=== PATIENT | female | born 1940 | race Caucasian/White ===

== ENCOUNTER 2020-01-21 20:17 | Emergency (ER) | payer OTHER ==
[~2020-01-21] VITALS: Ht 165.1 cm; Wt 44.9 kg
[2020-01-21 20:46] LABS: ABSOLUTE NEUTROPHILS 5.5 thou/uL (1.4-8.2); BASOPHILS 1.1 % (0.0-2.0); EOSINOPHILS 2.4 % (0.0-3.0); HEMATOCRIT 41.9 % (37.0-47.0); LYMPHOCYTES 28.7 % (24.0-44.0); MCH 29.9 pg (26.0-34.0); MCHC 33.3 g/dL (28.0-37.0); MCV 89.8 fL (80.0-100.0); MONOCYTES 6.3 % (1.0-8.0); PLATELET COUNT 345 thou/uL (150-400); POLYS 61.5 % (36.0-66.0); RBC 4.67 mil/uL (4.20-5.00); RDW 13.6 % (10.5-14.5)
[2020-01-21 20:51] VITALS: BP 199/105
[2020-01-21 21:01] LABS: ANION GAP 9 mmol/L (7-16); BUN 13 mg/dL (7-18); CALCIUM 9.4 mg/dL (8.5-10.1); CHLORIDE 101 mmol/L (98-107); CO2 29 mmol/L (21-32); CREATININE 0.9 mg/dL (0.6-1.0); GLUCOSE 157 mg/dL (74-106); POTASSIUM 3.9 mmol/L (3.5-5.1); SODIUM 139 mmol/L (136-145)
[2020-01-21 21:09] LABS: TROPONIN-I <0.06 ng/mL (<0.06)
--- NOTE | 2020-01-22 13:23 | EKG ---
[facility] [place] [address] ELECTROCARDIOGRAM REPORT Name: HELADIO ORTIZ Room #: DEP [facility]#: [id number] Admission: 01/21/20 Attend Phys: Discharge: 01/21/20 Date of : 36 Report #: [id number] THIS REPORT FOR: cc: FAM - Family physician unknown FAM - Family physician unknown Ramesh Dickey MD [facility] ~ THIS REPORT FOR: //name// 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
== END 2020-01-21 22:08 ==
LOC: ER 20:17
PROVIDERS: Emergency Medicine
DX: R09.2 Respiratory arrest (principal); J95.03 Malfunction of tracheostomy stoma; J93.0 Spontaneous tension pneumothorax